=== PATIENT | male | born 1955 | race Caucasian/White ===

== ENCOUNTER → 2016-11-07 | Outpatient (CLI) | payer OTHER ==
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
== END | disposition home or self-care (01) ==
LOC: SLEEP 15:26
PROVIDERS: ATTEND Internal Medicine Critical Care Medicine
DX: G47.33 Obstructive sleep apnea (adult) (pediatric) (principal); G47.19 Other hypersomnia; F41.9 Anxiety disorder, unspecified; F32.9 Major depressive disorder, single episode, unspecified; Z79.899 Other long term (current) drug therapy; Z91.09 Other allergy status, other than to drugs and biological substances; H40.9 Unspecified glaucoma
CPT/HCPCS: 99211

== ENCOUNTER 2017-07-07 18:56 | Emergency (ER) | payer OTHER ==
[2017-07-07 19:03] VITALS: TEMP 97.7
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
[2017-07-07 20:26] VITALS: BP 142/89; PULSE 49; RESP 18
== END 2017-07-07 20:35 | disposition home or self-care (01) ==
LOC: EC 18:56
DX: S06.0X0A Concussion without loss of consciousness, initial encounter (principal); E78.5 Hyperlipidemia, unspecified; F32.9 Major depressive disorder, single episode, unspecified; Z87.891 Personal history of nicotine dependence; Z79.51 Long term (current) use of inhaled steroids; Z79.899 Other long term (current) drug therapy; Z88.1 Allergy status to other antibiotic agents; W22.8XXA Striking against or struck by other objects, initial encounter
CPT/HCPCS: 70450; 99283

== ENCOUNTER 2017-08-15 14:40 | Emergency (ER) | payer OTHER ==
--- NOTE | 2017-08-15 15:36 | ED ---
General Adult HPI - General Chief complaint: Recheck/Abnormal Lab/Rx Stated complaint: Leg swelling Time Seen by Provider: 08/15/17 15:26 Source: patient, RN notes reviewed Mode of arrival: wheelchair Limitations: no limitations - History of Present Illness Initial comments: Patient is a pleasant 62-year-old male presenting to the emergency Department with right leg swelling and redness. Onset of symptoms was around 4 days ago. Symptoms have somewhat worsened today. Patient does have some discomfort of the anterior portion the leg. No discomfort in the posterior portion. Patient questions if he did have a fever a couple of days ago. No chest pain or difficulty in breathing. No history of chronic problems similar to this. Patient did go to urgent care prior to arrival and was advised come to the emergency department for ultrasound. - Related Data Home Medications Medication Instructions Recorded Confirmed Atorvastatin [Lipitor] 20 mg PO HS 07/07/17 08/15/17 Fluticasone Nasal [place] [Flonase 1 spray EA NOSTRIL HS 07/07/17 08/15/17 Nasal [place]] Montelukast [Singulair] 10 mg PO HS 07/07/17 08/15/17 Sertraline [Zoloft] 50 mg PO HS 07/07/17 08/15/17 Cholecalciferol [Vitamin D3] 5,000 unit PO HS 08/15/17 08/15/17 Ibuprofen [Motrin] 200 - 400 mg PO Q6HR PRN 08/15/17 08/15/17 Krill Oil 500 mg PO HS 08/15/17 08/15/17 Loratadine [Claritin] 10 mg PO HS 08/15/17 08/15/17 Magnesium Oxide [Mag-Ox] 250 mg PO HS 08/15/17 08/15/17 Multivitamins, Thera [Multivitamin 1 tab PO HS 08/15/17 08/15/17 (formulary)] Terbinafine HCl [LamISIL] 1 applic TOPICAL DAILY PRN 08/15/17 08/15/17 Ubidecarenone [Co Q-10] 100 mg PO HS 08/15/17 08/15/17 Previous Rx's Medication Instructions Recorded Cephalexin [Keflex] 500 mg PO QID #40 cap 08/15/17 Allergies Allergy/AdvReac Type Severity Reaction Status Date / Time gatifloxacin [From Tequin] Allergy Anaphylaxis Verified 08/15/17 15:52 Review of Systems ROS Statement: Those systems with pertinent positive or pertinent negative responses have been documented in the HPI. ROS Other: All systems not noted in ROS Statement are negative. Constitutional: Denies: fever Eyes: Denies: eye pain ENT: Denies: ear pain Respiratory: Denies: cough Cardiovascular: Denies: chest pain Endocrine: Denies: fatigue Gastrointestinal: Denies: abdominal pain Genitourinary: Denies: dysuria Musculoskeletal: Denies: back pain Skin: Reports: rash Neurological: Denies: weakness Past Medical History Past Medical History: Hyperlipidemia Additional Past Medical History / Comment(s): glaucoma, seasonal allergies History of Any Multi-Drug Resistant Organisms: None Reported Past Surgical History: Hernia Repair Additional Past Surgical History / Comment(s): eye Past Psychological History: Depression Smoking Status: Former smoker Past Alcohol Use History: Rare Past Drug Use History: None Reported General Exam Limitations: no limitations General appearance: alert, in no apparent distress Head exam: Present: atraumatic Eye exam: Present: normal appearance, PERRL ENT exam: Present: normal oropharynx Neck exam: Present: normal inspection Respiratory exam: Present: normal lung sounds bilaterally Cardiovascular Exam: Present: regular rate, normal rhythm Expanded Peripheral pulses: 2+: Dorsalis Pedis (R), Dorsalis Pedis (L) GI/Abdominal exam: Present: soft. Absent: tenderness Extremities exam: Present: other (Right lower leg with +1 edema. There is anterior bennett erythema with anterior mild tenderness and warmth from the ankle to below the knee. No calf tenderness. There is mild skin breakdown of the toes.). Absent: calf tenderness Neurological exam: Present: alert Psychiatric exam: Present: normal affect, normal mood Skin exam: Present: erythema Course Vital Signs 08/15/17 14:54 Temperature 97.4 F L Pulse Rate 54 L Respiratory 16 Rate Blood Pressure 158/83 O2 Sat by Pulse 98 Oximetry Medical Decision Making - Medical Decision Making Patient reevaluated and updated. - Radiology Data Radiology results: report reviewed (Ultrasound right leg negative for DVT) Disposition Clinical Impression: Cellulitis of right leg Disposition: HOME SELF-CARE Condition: Stable Instructions: Cellulitis (ED) Additional Instructions: Please follow-up with primary care physician in the next day or 2 for recheck. Return for fevers, increased swelling, redness, worsening symptoms or other concerns. Prescriptions: Cephalexin [Keflex] 500 mg PO QID #40 cap Referrals: Rodney Caputo MD [Primary Care Provider] - 1-2 days Time of Disposition: 16:21
--- NOTE | 2017-08-15 16:14 | US ---
EXAMINATION TYPE: US venous doppler duplex LE RT DATE OF EXAM: 08/15/2017 3:33 PM COMPARISON: NONE CLINICAL HISTORY: Pain. Right calf redness and swelling, no h/o dvt SIDE PERFORMED: right TECHNIQUE: The lower extremity deep venous system is examined utilizing real time linear array sonog ricci with graded compression, doppler sonography and color-flow sonography. VESSELS IMAGED: External Iliac Vein (EIV) Common Femoral Vein Deep Femoral Vein Greater Saphenous Vein * Femoral Vein Popliteal Vein Small Saphenous Vein * Proximal Calf Veins (* superficial vessels) Right Leg: Appears negative for DVT IMPRESSION: 1. Right lower extremity negative for deep venous thrombosis based on ultrasound.
[2017-08-15] MEDS ORDERED: CEPHALEXIN 500MG STARTER PACK 4 CAP BTL PO STA (16:20)
[2017-08-15 23:30] VITALS: BP 129/80; PULSE 48; RESP 16; TEMP 97.9
== END 2017-08-15 16:30 | disposition home or self-care (01) ==
LOC: EC 14:40
DX: L03.115 Cellulitis of right lower limb (principal); E78.5 Hyperlipidemia, unspecified; F32.9 Major depressive disorder, single episode, unspecified; Z87.891 Personal history of nicotine dependence; Z79.51 Long term (current) use of inhaled steroids; Z79.899 Other long term (current) drug therapy; Z88.1 Allergy status to other antibiotic agents
CPT/HCPCS: 99283

== ENCOUNTER → 2022-01-04 | Outpatient (CLI) | payer MEDICARE ==
[2022-01-04 14:45] LABS: ALT 42 U/L (10-49); AST 28 U/L (14-35); Chol/HDL Ratio 2.99 Ratio; LDL Cholesterol,Calculated 62.2 mg/dL (0.0-131.0); VLDL Calculation 17.04 mg/dL (5.00-40.00)
== END | disposition home or self-care (01) ==
LOC: LABWHC1 09:56
PROVIDERS: ATTEND Internal Medicine Interventional Cardiology
DX: E78.2 Mixed hyperlipidemia (principal)
CPT/HCPCS: 36415; 80061; 84450; 84460

== ENCOUNTER → 2024-03-04 | Outpatient (CLI) | payer MEDICARE ==
--- NOTE | 2024-03-04 17:04 | US ---
EXAMINATION TYPE: US kidneys/renal and bladder DATE OF EXAM: 03/04/2024 COMPARISON: NONE CLINICAL INDICATION: Male, 69 years old with history of R94.4 ABNORMAL RENAL FUNCTION TEST; Abnormal renal function test. EXAM MEASUREMENTS: Right Kidney: 12.8 x 6.7 x 4.5 cm Left Kidney: 12.7 x 5.0 x 4.6 cm Right Kidney: No hydronephrosis or masses seen Left Kidney: Echogenic areas seen Bladder: anechoic Bilateral Jets seen: no There is no evidence for hydronephrosis at this point in time. No masses are identified. The urina ry bladder is anechoic. Bilateral ureteral jets are seen. IMPRESSION: Nonobstructing left-sided nephrolithiasis suggested.
== END | disposition home or self-care (01) ==
LOC: RADUSWWP 15:07
PROVIDERS: ATTEND Family Medicine
DX: R94.4 Abnormal results of kidney function studies (principal)
CPT/HCPCS: 76770

== ENCOUNTER 2024-08-09 22:59 | Emergency (ER) | payer MEDICARE ==
--- NOTE | 2024-08-09 23:53 | ED ---
General Adult HPI - General Source: patient Mode of arrival: wheelchair Limitations: no limitations <Charmaine Birch - Last Filed: 08/09/24 23:51> - History of Present Illness Onset/Timin -: hour(s) <Barron Gilbert - Last Filed: 08/24/24 18:41> - General Stated complaint: SOB Time Seen by Provider: 08/09/24 23:51 - History of Present Illness Initial comments: 69-year-old male presented with chief complaint of shortness of breath. Started earlier today. States that he is having some chest tightness and does not feel like he can take a big enough breath. He admits to productive cough. No fever. States that his legs are usually swollen, do not seem to be more swollen than usual. (Charmaine Birch) - Related Data Home Medications Medication Instructions Recorded Confirmed Atorvastatin [Lipitor] 20 mg PO HS 07/07/17 10/05/22 Montelukast [Singulair] 10 mg PO HS 07/07/17 10/05/22 Previous Rx's Medication Instructions Recorded Albuterol Inhaler [Ventolin Hfa 2 puff INHALATION Q4HR PRN #8 gm 08/10/24 Inhaler] Azithromycin [Zithromax] 0 mg PO DIRECTED #6 tab 08/10/24 predniSONE 60 mg PO DAILY #30 tab 08/10/24 Allergies Allergy/AdvReac Type Severity Reaction Status Date / Time gatifloxacin [From Tequin] Allergy Anaphylaxis Verified 08/09/24 23:55 Review of Systems ROS Other: All systems not noted in ROS Statement are negative. <Charmaine Birch - Last Filed: 08/09/24 23:51> ROS Other: All systems not noted in ROS Statement are negative. Constitutional: Denies: fever, chills ENT: Reports: congestion Respiratory: Reports: cough, dyspnea Cardiovascular: Denies: chest pain, palpitations, orthopnea, edema, syncope Gastrointestinal: Denies: abdominal pain, nausea, vomiting Genitourinary: Denies: dysuria, hematuria Musculoskeletal: Reports: myalgia. Denies: back pain Skin: Denies: rash Neurological: Denies: headache, weakness, numbness <Barron Gilbert - Last Filed: 08/24/24 18:41> ROS Statement: Those systems with pertinent positive or pertinent negative responses have been documented in the HPI. Past Medical History Past Medical History: Eye Disorder, Hyperlipidemia Additional Past Medical History / Comment(s): glaucoma, seasonal allergies History of Any Multi-Drug Resistant Organisms: None Reported Past Surgical History: Hernia Repair Additional Past Surgical History / Comment(s): eye surg. Past Anesthesia/Blood Transfusion Reactions: No Reported Reaction Past Psychological History: No Psychological Hx Reported Smoking Status: Former smoker Past Alcohol Use History: Rare Past Drug Use History: None Reported <Charmaine Birch - Last Filed: 08/09/24 23:51> General Exam <Charmaine Birch - Last Filed: 08/09/24 23:51> General appearance: alert, in no apparent distress Head exam: Present: atraumatic, normocephalic Eye exam: Present: normal appearance. Absent: scleral icterus, conjunctival injection Neck exam: Present: normal inspection Respiratory exam: Present: wheezes. Absent: respiratory distress, rales, rhonchi, stridor, accessory muscle use Cardiovascular Exam: Present: regular rate, normal rhythm, normal heart sounds. Absent: systolic murmur, diastolic murmur, rubs, gallop GI/Abdominal exam: Present: soft. Absent: distended, tenderness, guarding, rebound, rigid, mass Extremities exam: Present: normal inspection, normal capillary refill. Absent: pedal edema, calf tenderness Back exam: Present: normal inspection. Absent: CVA tenderness (R), CVA tenderness (L) Neurological exam: Present: alert Skin exam: Present: warm, dry, intact, normal color. Absent: rash <Barron Gilbert - Last Filed: 08/24/24 18:41> - General Exam Comments Initial Comments: Visual Physical Exam Vital signs reviewed General: Well-appearing, nontoxic, no acute distress. Head: Normocephalic, atraumatic Eyes: PERRLA, EOMI ENT: Airway patent Chest: Nonlabored breathing Skin: No visual rash, normal skin tone Neuro: Alert and oriented 3 Musculoskeletal: No gross abnormalities (Charmaine Birch) Course Vital Signs 08/09/24 08/10/24 08/10/24 23:47 06:25 06:38 Temperature 98.5 F Pulse Rate 61 84 78 Respiratory 20 Rate Blood Pressure 155/93 O2 Sat by Pulse 94 L Oximetry 08/10/24 07:33 Temperature 97.8 F Pulse Rate 60 Respiratory 16 Rate Blood Pressure 155/74 O2 Sat by Pulse 99 Oximetry EKG Findings - EKG Results: EKG: interpreted by ERMD, sinus rhythm (With occasional supraventricular complexes, rate 68 bpm), normal axis - Blocks, [place], Hypertrophy, ST Abn: QRS axis and voltage: low voltage (<0.5 MV total QRS and <1.0 MV in each precordial lead) Repolarization changes or abnormalities: nonspecific abnormality, ST segment, and/or T wave <Barron Gilbert - Last Filed: 08/24/24 18:41> Medical Decision Making <Charmaine Birch - Last Filed: 08/09/24 23:51> - Lab Data Result diagrams: 08/10/24 00:08 08/10/24 00:08 <Barron Gilbert - Last Filed: 08/24/24 18:41> - Medical Decision Making I performed the quick note portion of this visit, electronically signed Charmaine Birch PA-C (Charmaine Birch) The patient had chest x-ray that I interpreted as negative for acute infiltrate, pneumothorax, congestive heart failure Was pt. sent in by a medical professional or institution ([facility]ee, TAX PREPARER, urgent care, hospital, or fci...) When possible be specific @ -[No] Did you speak to anyone other than the patient for history (EMS, parent, family, police, friend...)? What history was obtained from this source @ -[No] Did you review nursing and triage notes (agree or disagree)? Why? @ -[I reviewed and agree with nursing and triage notes] Were old charts reviewed (outside hosp., previous admission, EMS record, old EKG, old radiological studies, urgent care reports/EKG's, fci records)? Report findings @ -[No old charts were reviewed] Differential Diagnosis (chest pain, altered mental status, abdominal pain women, abdominal pain men, vaginal bleeding, weakness, fever, dyspnea, syncope, headache, dizziness, GI bleed, back pain, seizure, CVA, palpatations, mental health, musculoskeletal)? @ -Differential Dyspnea: Coronary syndrome, arrhythmia, tamponade, asthma, COPD, pulmonary embolism, pn eum[place], pneumothorax, pulmonary effusion, anaphylaxis, diabetic ketoacidosis, flailed chest, pulmonary contusion, diaphragmatic rupture, anemia, neuromuscular, this is not meant to be an all-inclusive list. EKG interpreted by me (3pts min.). @ -[I interpreted as above] X-rays interpreted by me (1pt min.). @ -[I interpreted as above CT interpreted by me (1pt min.). @ -[None done] U/S interpreted by me (1pt. min.). @ -[None done] What testing was considered but not performed or refused? (CT, X-rays, U/S, labs)? Why? @ -[None] What meds were considered but not given or refused? Why? @ -[None] Did you discuss the management of the patient with other professionals (professionals i.e. , PA, TAX PREPARER, lab, RT, psych nurse, rn social work, talent recruiter, teacher, anti air warfare operations officer, onsite case manager)? Give summary @ -[No] Was smoking cessation discussed for >3mins.? @ -[No] Was critical care preformed (if so, how long)? @ -[No] Were there social determinants of health that impacted care today? How? (Homelessness, low income, unemployed, alcoholism, drug addiction, transportation, low edu. Level, literacy, decrease access to med. care, prison, rehab)? @ -[No] Was there de-escalation of care discussed even if they declined (Discuss DNR or withdrawal of care, Hospice)? DNR status @ -[No] What co-morbidities impacted this encounter? (DM, HTN, Smoking, COPD, CAD, Cancer, CVA, ARF, Chemo, Hep., AIDS, mental health diagnosis, sleep apnea, morbid obesity)? @ -[Underlying COPD Was patient admitted / discharged? Hospital course, mention meds given and route, prescriptions, significant lab abnormalities, going to OR and other pertinent info. @ -[Patient is 69-year-old man with history of COPD who presents with shortness of breath. The patient had improvement of symptoms here. His workup con sistent with COPD exacerbation. The patient would like to go home. He is offered admission but is feeling better. Discussed appropriate further care as well as return parameters. Undiagnosed new problem with uncertain prognosis? @ -[No] Drug Therapy requiring intensive monitoring for toxicity (Heparin, Nitro, Insulin, Cardizem)? @ -[No] Were any procedures done? @ -[No] Diagnosis/symptom? @ -[Acute COPD exacerbation Acute, or Chronic, or Acute on Chronic? @ -[Acute Uncomplicated (without systemic symptoms) or Complicated (systemic symptoms)? @ -[Uncomplicated Side effects of treatment? @ -[No] Exacerbation, Progression, or Severe Exacerbation? @ -[Yes Poses a threat to life or bodily function? How? (Chest pain, USA, CT, pneumonia, PE, COPD, DKA, ARF, appy, cholecystitis, CVA, Diverticulitis, Homicidal, Suicidal, threat to staff... and all critical care pts) @ -[Low risk All treatments are based on ideal body weight as in ED triage (Barron Gilbert) - Lab Data Lab Results 08/10/24 08/10/24 08/10/24 Range/Units 00:08 00:08 00:08 WBC 12.2 H (3.8-10.6) k/uL RBC 5.06 (4.30-5.90) m/uL Hgb 16.3 (13.0-17.5) gm/dL Hct 48.7 (39.0-53.0) % MCV 96.2 (80.0-100.0) fL MCH 32.2 (25.0-35.0) pg MCHC 33.4 (31.0-37.0) g/dL RDW 13.2 (11.5-15.5) % Plt Count 150 (150-450) k/uL MPV 9.6 Neutrophils % 85 % Lymphocytes % 7 % Monocytes % 4 % Eosinophils % 3 % Basophils % 1 % Neutrophils # 10.3 H (1.3-7.7) k/uL Lymphocytes # 0.9 L (1.0-4.8) k/uL Monocytes # 0.5 (0-1.0) k/uL Eosinophils # 0.3 (0-0.7) k/uL Basophils # 0.1 (0-0.2) k/uL PT 10.9 (10.0-12.5) sec INR 1.0 (<1.2) APTT 23.4 (22.0-30.0) sec Sodium 137 (137-145) mmol/L Potassium 4.4 (3.5-5.1) mmol/L Chloride 103 (98-107) mmol/L Carbon Dioxide 25 (22-30) mmol/L Anion Gap 9 mmol/L BUN 22 H (9-20) mg/dL Creatinine 0.96 (0.66-1.25) mg/dL Est GFR (CKD-EPI)AfAm >90 (>60 ml/min/1.73 sqM) Est GFR (CKD-EPI)NonAf 80 (>60 ml/min/1.73 sqM) Glucose 148 H (74-99) mg/dL Plasma Lactic Acid Rivera (0.7-2.0) mmol/L Calcium 9.4 (8.4-10.2) mg/dL Magnesium 2.3 (1.6-2.3) mg/dL Total Bilirubin 0.8 (0.2-1.3) mg/dL AST 30 (17-59) U/L ALT 24 (4-49) U/L Alkaline Phosphatase 71 (38-126) U/L Troponin I (0.000-0.034) ng/mL NT-Pro-B Natriuret Pep 39 pg/mL Total Protein 7.2 (6.3-8.2) g/dL Albumin 4.5 (3.5-5.0) g/dL Influenza Type A (PCR) (Not Detectd) Influenza Type B (PCR) (Not Detectd) RSV (PCR) (Not Detectd) SARS-CoV-2 (PCR) (Not Detectd) 08/10/24 08/10/24 08/10/24 Range/Units 00:08 00:08 00:41 WBC (3.8-10.6) k/uL RBC (4.30-5.90) m/uL Hgb (13.0-17.5) gm/dL Hct (39.0-53.0) % MCV (80.0-100.0) fL MCH (25.0-35.0) pg MCHC (31.0-37.0) g/dL RDW (11.5-15.5) % Plt Count (150-450) k/uL MPV Neutrophils % % Lymphocytes % % Monocytes % % Eosinophils % % Basophils % % Neutrophils # (1.3-7.7) k/uL Lymphocytes # (1.0-4.8) k/uL Monocytes # (0-1.0) k/uL Eosinophils # (0-0.7) k/uL Basophils # (0-0.2) k/uL PT (10.0-12.5) sec INR (<1.2) APTT (22.0-30.0) sec Sodium (137-145) mmol/L Potassium (3.5-5.1) mmol/L Chloride (98-107) mmol/L Carbon Dioxide (22-30) mmol/L Anion Gap mmol/L BUN (9-20) mg/dL Creatinine (0.66-1.25) mg/dL Est GFR (CKD-EPI)AfAm (>60 ml/min/1.73 sqM) Est GFR (CKD-EPI)NonAf (>60 ml/min/1.73 sqM) Glucose (74-99) mg/dL Plasma Lactic Acid Rivera 1.0 (0.7-2.0) mmol/L Calcium (8.4-10.2) mg/dL Magnesium (1.6-2.3) mg/dL Total Bilirubin (0.2-1.3) mg/dL AST (17-59) U/L ALT (4-49) U/L Alkaline Phosphatase (38-126) U/L Troponin I <0.012 (0.000-0.034) ng/mL NT-Pro-B Natriuret Pep pg/mL Total Protein (6.3-8.2) g/dL Albumin (3.5-5.0) g/dL Influenza Type A (PCR) Not Detected (Not Detectd) Influenza Type B (PCR) Not Detected (Not Detectd) RSV (PCR) Not Detected (Not Detectd) SARS-CoV-2 (PCR) Not Detected (Not Detectd) Disposition <Charmaine Birch - Last Filed: 08/09/24 23:51> Is patient prescribed a controlled substance at d/c from ED?: No <Barron Gilbert - Last Filed: 08/24/24 18:41> Clinical Impression: COPD exacerbation Disposition: HOME SELF-CARE Condition: Good Instructions (If sedation given, give patient instructions): COPD (Chronic Obstructive Pulmonary Disease) (ED) Prescriptions: predniSONE 60 mg PO DAILY #30 tab Albuterol Inhaler [Ventolin Hfa Inhaler] 2 puff INHALATION Q4HR PRN #8 gm PRN Reason: Wheezing Azithromycin [Zithromax] 0 mg PO DIRECTED #6 tab Referrals: Rodney Caputo MD [Primary Care Provider] - 1-2 days
[2024-08-10 00:22] LABS: Basophils # (A) 0.1 k/uL (0-0.2); Basophils % (A) 1 %; Eosinophils # (A) 0.3 k/uL (0-0.7); Eosinophils % (A) 3 %; HCT 48.7 % (39.0-53.0); HGB 16.3 gm/dL (13.0-17.5); Lymphocytes # (A) 0.9 k/uL (1.0-4.8); Lymphocytes % (A) 7 %; MCH 32.2 pg (25.0-35.0); MCHC 33.4 g/dL (31.0-37.0); MCV 96.2 fL (80.0-100.0); Mean Platelet Volume 9.6; Monocytes # (A) 0.5 k/uL (0-1.0); Monocytes % (A) 4 %; Neutrophils # (A) 10.3 k/uL (1.3-7.7); Neutrophils % (A) 85 %; Platelet Count 150 k/uL (150-450); RBC 5.06 m/uL (4.30-5.90); RDW 13.2 % (11.5-15.5); WBC 12.2 k/uL (3.8-10.6)
[2024-08-10 00:39] LABS: ALT 24 U/L (4-49); AST 30 U/L (17-59); African American GFR (CKD) >90 (>60 ml/min/1.73 sqM); Albumin 4.5 g/dL (3.5-5.0); Alkaline Phosphatase 71 U/L (38-126); Anion Gap 9 mmol/L; Blood Urea Nitrogen 22 mg/dL (9-20); Calcium 9.4 mg/dL (8.4-10.2); Carbon Dioxide 25 mmol/L (22-30); Chloride 103 mmol/L (98-107); Glucose 148 mg/dL (74-99); Magnesium 2.3 mg/dL (1.6-2.3); Non-African American GFR(CKD) 80 (>60 ml/min/1.73 sqM); Potassium 4.4 mmol/L (3.5-5.1); Sodium 137 mmol/L (137-145); Total Bilirubin 0.8 mg/dL (0.2-1.3); Total Protein 7.2 g/dL (6.3-8.2)
[2024-08-10 00:42] LABS: Partial Thromboplastin Time 23.4 sec (22.0-30.0); Prothrombin Time 10.9 sec (10.0-12.5)
[2024-08-10 00:48] LABS: NT-Pro-B-Type Natriuretic Pept 39 pg/mL
--- NOTE | 2024-08-10 05:20 | XR ---
EXAM: XR Chest, 2 Views CLINICAL HISTORY: ITS.REASON XR Reason: difficulty breathing TECHNIQUE: Frontal and lateral views of the chest. COMPARISON: No relevant prior studies available. FINDINGS: Lungs: No consolidation or mass. Pleural space: No effusion. Heart: cardiomegaly. Bones/joints: No acute findings. IMPRESSION: No acute cardiopulmonary process.
[2024-08-10] MEDS: AZITHROMYCIN 500 MG TAB PO STA (05:51)
[2024-08-10] MEDS: ACETAMINOPHEN TAB 325 MG TAB PO STA (05:52)
[2024-08-10] MEDS: ALBUTEROL NEBULIZED 2.5 MG/3 ML INHALATION STA (06:23)
[2024-08-10] MEDS: predniSONE 20 MG TAB PO STA (07:33)
[2024-08-10 07:35] VITALS: BP 155/74; PULSE 60; RESP 16; TEMP 97.8
== END 2024-08-10 07:34 | disposition home or self-care (01) ==
LOC: EC 22:59
DX: J44.1 Chronic obstructive pulmonary disease with (acute) exacerbation (principal); Z88.8 Allergy status to other drugs, medicaments and biological substances; Z87.891 Personal history of nicotine dependence
CPT/HCPCS: 36415; 94640; 93005; 83880; 80053; 83605; 83735; 84484; 85025; 85610; 85730; 87636; 71046; 99285; J7512

== ENCOUNTER → 2025-01-16 | Outpatient (CLI) | payer MEDICARE ==
[2025-01-16 15:47] LABS: ALT 35 U/L (10-49); AST 32 U/L (14-35); Albumin 4.2 g/dL (3.8-4.9); Alkaline Phosphatase 68 U/L (41-126); Blood Urea Nitrogen 19.9 mg/dL (9.0-27.0); Calcium 8.9 mg/dL (8.7-10.3); Carbon Dioxide 24.8 mmol/L (21.6-31.8); Chloride 106 mmol/L (96-109); Chol/HDL Ratio 3.41 Ratio; Globulin 2.1 g/dL (1.6-3.3); Glucose 97 mg/dL (70-110); LDL Cholesterol,Calculated 70.1 mg/dL (0.0-131.0); Potassium 4.6 mmol/L (3.5-5.5); Prostate Specific Antigen 2.77 ng/mL (0.000-6.500); Sodium 141 mmol/L (135-145); T4, Free (Free Thyroxine) 1.59 ng/dL (0.80-1.80); Total Bilirubin 1.3 mg/dL (0.3-1.2); Total Protein 6.3 g/dL (6.2-8.2); VLDL Calculation 16.12 mg/dL (5.00-40.00)
[2025-01-16 19:07] LABS: Basophils # (A) 0.03 X 10*3/uL (0.00-0.10); Basophils % (A) 0.6 %; Eosinophils # (A) 0.09 X 10*3/uL (0.04-0.35); Eosinophils % (A) 1.9 %; HCT 46.6 % (39.6-50.0); HGB 15.1 g/dL (13.0-17.0); Lymphocytes # (A) 1.32 X 10*3/uL (0.90-5.00); Lymphocytes % (A) 27.6 %; MCH 31.4 pg (27.0-32.0); MCHC 32.4 g/dL (32.0-37.0); MCV 96.9 FL (80.0-97.0); Mean Platelet Volume 12.5 FL (9.5-12.2); Monocytes # (A) 0.58 X 10*3/uL (0.20-1.00); Monocytes % (A) 12.1 %; NRBC Per 100 WBC 0 X 10*3/uL (0.00-0.01); Neutrophils # (A) 2.75 X 10*3/uL (1.80-7.70); Neutrophils % (A) 57.4 %; Platelet Count 134 X 10*3/uL (140-440); RBC 4.81 X 10*6/uL (4.40-5.60); WBC 4.79 X 10*3/uL (4.50-10.00)
== END | disposition home or self-care (01) ==
LOC: LABWHC1 11:27
PROVIDERS: ATTEND Family Medicine
DX: Z00.00 Encounter for general adult medical examination without abnormal findings (principal); I27.20 Pulmonary hypertension, unspecified
CPT/HCPCS: 36415; 80053; 80061; 84153; 84439; 84443; 85025